=== PATIENT | male | born 1990 | race Two or more races ===

== ENCOUNTER 2016-11-10 11:42 | Emergency (ER) | payer BC ==
[~2016-11-10] VITALS: Ht 175.3 cm; Wt 72.6 kg
[2016-11-10] MEDS ORDERED: Norco 5mg/325mg tab ORAL ONE (12:15)
[2016-11-10] MEDS ORDERED: NORCO 5-325 TA1 EAC1 ORAL (12:24)
[2016-11-10] MEDS ORDERED: IBUPROFEN600 MG ORAL (12:24)
[2016-11-10] MEDS ORDERED: ALBUTEROL SULF8.5 GM INH (12:26)
[2016-11-10 12:38] VITALS: BP 143/80
--- NOTE | 2016-11-10 13:53 | Diagnostic Imaging Report ---
Indications: Low trauma to left toes, pain Technique: 3 views left toes. Findings: Comparison: None Obliquely oriented linear lucency traverses the dorsomedial margin of the first distal phalangeal tuft, nondisplaced. Overlying nail bed appears grossly intact. No additional Fracture, dislocation, joint space widening , surrounding soft tissue swelling/foreign body/S., or other acute changes are identified. IMPRESSION: Fracture first distal phalangeal tuft, apparently closed
--- NOTE | 2016-11-11 13:47 | Emergency Room Report ---
History of Present Illness General Chief Complaint: Lower Extremity Injury Source: Patient Present Illness HPI Patient is a 26-year-old male who presented after dropping a car arnoldo on his left great toe. Patient had increased pain. Patient was noted to have some difficulty with ambulation. Patient noticed increased swelling. Injury occurred 1 day prior to arrival. Patient denies other past medical history except for intermittent asthma. The patient states he's had a cough for several days. He denies any fever or dizziness at this time. Allergies: Coded Allergies: PENICILLINS (Verified Allergy, Unknown, 11/10/16) Patient History Past Medical History: see triage record, asthma Reviewed Nursing Documentation: PMH: Agreed, PSxH: Agreed Nursing Documentation-PMH Past Medical History: No History, Except For Hx Asthma: Yes Review of Systems All Other Systems: negative except mentioned in HPI Physical Exam Vital Signs Date Time Temp Pulse Resp B/P Pulse Ox O2 Delivery O2 Flow Rate FiO2 11/10/16 11:56 98.6 99 16 143/80 95 Room Air General Appearance: well appearing, no apparent distress, alert, GCS 15 Head: normocephalic, atraumatic ENT: hearing grossly normal, normal voice Neck: full range of motion, supple Respiratory: no respiratory distress, speaking full sentences, wheezing - faint , normal respirations Gastrointestinal: normal inspection Musculoskeletal: no calf tenderness, swelling - bruising and swelling to left great toe Neurologic: normal inspection, alert, oriented x3, normal gait Psychiatric: mood/affect normal Skin: no rash Medical Decision Making Diagnostic Impression: Primary Impression: Fracture of distal phalanx of toe of left foot ER Course Patient presented for toe pain. Differential diagnosis included wasn't limited to osteomyelitis, fracture, ingrown toenail, contusion, gouty arthritis among others. X-ray imaging of the left foot previous interpreted by me showed distal phalanx fracture without joint involvement.Patient placed in a bulky dressing and placing cast shoe. The patient is advised to follow up with primary care doctor in 1-2 days for orthopedic referral. Patient was advised to keep his foot elevated and to take. Patient is advised to return if any worsening condition or if any changes in status that are concerning. Last Vital Signs Date Time Temp Pulse Resp B/P Pulse Ox O2 Delivery O2 Flow Rate FiO2 11/10/16 12:47 98.6 11/10/16 12:38 99 16 143/80 95 Room Air Status: improved Disposition: HOME, SELF-CARE Condition: Stable Scripts Albuterol Sulfate* (ALBUTEROL SULFATE MDI*) 8.5 Gm Hfa.aer.ad 2 PUFF INH Q6H, #1 EA 0 Refills Prov: Armin Martinez 11/10/16 Ibuprofen* (MOTRIN*) 600 Mg Tablet 600 MG ORAL Q8H Y for For Pain, #30 TAB 0 Refills Prov: Armin Martinez 11/10/16 Hydrocodone Bit/Acetaminophen 5-325* (NORCO 5-325 TABLET*) 1 Each Tablet 1 TAB ORAL Q4H Y for For Pain, #20 TAB Prov: Armin Martinez 11/10/16 Referrals: NOT CHOSEN IPA/MD,REFERRING (PCP) Patient Instructions: Crush Injury, Fingers or Toes Armin Martinez Nov 11, 2016 13:47
== END 2016-11-10 12:45 | disposition home or self-care (01) ==
LOC: EMR 12:17
DX: S92.422A Displaced fracture of distal phalanx of left great toe, initial encounter for closed fracture (principal); Z88.0 Allergy status to penicillin; J45.909 Unspecified asthma, uncomplicated; W20.8XXA Other cause of strike by thrown, projected or falling object, initial encounter; Y92.9 Unspecified place or not applicable; Y99.8 Other external cause status
CPT/HCPCS: 99283